=== PATIENT | female | born 2000 | race Two or more races ===

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

== ENCOUNTER 2023-06-28 19:05 | Emergency (ER) | payer OTHER ==
[2023-06-28 19:24] VITALS: BP 126/77; PULSE 99; RESP 20; TEMP 100.3; BMI 23.0
[2023-06-28] MEDS ORDERED: ACETAMINOPHEN 500 MG TABLET (FP) ONE (19:59)
[2023-06-28] MEDS: ACETAMINOPHEN 500 MG TABLET (FP) PO ONE (20:02)
[2023-06-28 20:34] LABS: THROAT:GRP A STREP NOT DETECTED (NOTDETECTED)
[2023-06-28] MEDS ORDERED: ALBUTEROL SO4 0.083% IH SOL 2.5 MG/3 ML VIAL.NEB. NEB ONE (20:46)
[2023-06-28] MEDS: ALBUTEROL SO4 0.083% IH SOL 2.5 MG/3 ML VIAL.NEB. NEB ONE (20:53)
== END 2023-06-28 22:30 | disposition home or self-care (01) ==
LOC: JERFT 19:05
PROC: 3E0F7GC Introduction of Other Therapeutic Substance into Respiratory Tract, Via Natural or Artificial Opening (ICD-10-PCS; principal; 2023-06-28)
DX: R05.9 Cough, unspecified (principal); R09.81 Nasal congestion; R53.81 Other malaise; J06.9 Acute upper respiratory infection, unspecified; J45.20 Mild intermittent asthma, uncomplicated; Z20.822 Contact with and (suspected) exposure to COVID-19
CPT/HCPCS: 0241U-QW; 87651; 99283-25